=== PATIENT | male | born 1945 | race Caucasian/White ===

== ENCOUNTER 2018-08-02 06:08 | Inpatient (IN) | payer MEDICARE, OTHER, SELFPAY ==
[2018-07-29 11:00] VITALS: BMI 25.8
[2018-08-02] VITALS (14 sets, daily range): BP systolic 99–159; BP diastolic 50–93; PULSE 58–92; RESP 13–20; TEMP 35.8–36.9; O2SAT 95–100; BMI 24.9
--- NOTE | 2018-08-02 06:00 | DI.RAD.S_ITS ---
PROCEDURE: XR PELVIS 1-2V INDICATIONS: postop right total hip TECHNIQUE: 1 view of the lower pelvis acquired. COMPARISON: [facility], CR, XR PELVIS WITH LATERAL HIP RIGHT, 04/06/2018, 10:30. [facility], CR, PELVIS 1 OR 2 VIEWS, 08/04/2016, 12:44. [facility], CR, PELVIS 1 OR 2VW, 10/06/2013, 9:28. FINDINGS: Bones: Patient is status post right hip arthroplasty, with hardware components in expected positions. The hip joint appears congruent. The visualized bony structures appear intact. Soft tissues: Overlying postoperative changes are noted. No suspicious soft tissue densities. IMPRESSION: Interval right total hip arthroplasty, normal alignment. Dictated by: Ozzy Jalloh M.D. on 08/02/2018 at 9:31 Approved by: Ozzy Jalloh M.D. on 08/02/2018 at 9:31
[2018-08-02] MEDS: ACETAMINOPHEN 325 MG TABLET 975 MG PO (07:24)
[2018-08-02] MEDS: PREGABALIN 75 MG CAPSULE PO (07:25)
[2018-08-02] MEDS: MELOXICAM 7.5 MG TABLET 15 MG PO (07:25)
[2018-08-02] MEDS: LACTATED RINGERS 1,000 ML 42 ML IV ×2 (07:32→08:28)
[2018-08-02] MEDS: CEFAZOLIN 2 GM/100 ML FROZ.PIGGY IV ×2 (07:43→17:00)
--- NOTE | 2018-08-02 07:44 | PM.PREOP ---
Pre-operative Note Interval Note History & Physical reviewed/Exam performed by Physician: Yes Changes to H&P: No
--- NOTE | 2018-08-02 08:18 | SUR.OPER ---
Lateral on padded OR bed. Gel axillary roll. Arms secured on padded armboard with pillow supporting top arm. Padded hip positioner braces x4 - anterior and posterior chest and pelvis. Additional gel pad used anterior pelvis. Gel pad under bottom leg from knee to foot and secured with tape over sheet.
[2018-08-02] MEDS: BUPIVACAINE 0.25% W/ EPI VIAL 50 ML INJ (08:30)
[2018-08-02] MEDS: TRANEXAMIC ACID 1,000 MG VIAL 1000 MG IV ×2 (08:33→08:49)
--- NOTE | 2018-08-02 09:21 | PM.OP.1 ---
Operative Date/Time/Diagnoses Date of procedure: 08/02/18 Time of procedure: 09:21 Pre-op diagnosis: right hip degenerative joint disease Post-op diagnosis: same Procedure & Clinicians Procedure: right total hip arthroplasty ( CPT code 04781 with bilingual teacher assistant) Same procedure as scheduled: Yes
--- NOTE | 2018-08-02 09:24 | P.OP_ITS ---
Operative Date/Time/Diagnoses Date of procedure: 08/02/18 Time of procedure: 09:21 Pre-op diagnosis: right hip degenerative joint disease Post-op diagnosis: same Procedure & Clinicians Procedure: right total hip arthroplasty ( CPT code 90519 with malt specifications control assistant) Same procedure as scheduled: Yes
--- NOTE | 2018-08-02 09:25 | SUR.PHASEI ---
glasses, hearing aids, clothing bag, and coat with patient. Arouses easily, declined PO intake, pain, nausea. returned to sleep.
--- NOTE | 2018-08-02 09:27 | PM.OP.1 ---
Operative Date/Time/Diagnoses Date of procedure: 08/02/18 Time of procedure: 09:27 Pre-op diagnosis: Right hip degenerative joint disease Post-op diagnosis: same Procedure & Clinicians Procedure: right total hip arthroplasty ( CPT code 53956 with community assistant) Same procedure as scheduled: Yes Indications: Patient is an []-year-old [] with severe [] hip DJD. The patient has pain with activities and at rest, limited ambulation and activity tolerance, difficulties with ADLs, and failure of conservative treatment. We have discussed the nature of condition, treatment options, risks and benefits, and patient elects to proceed with total hip arthroplasty and gives informed consent. Surgeon: Lito Carlson Lift Mechanic: Adrian Brasher Anesthesia Type: General and Spinal Operative Notes Closure Type: primary Specimen(s): none sent Estimated Blood Loss (mL): 150 Blood products transfused: none
--- NOTE | 2018-08-02 09:30 | SUR.PHASEI ---
anesthesia checked on patient, movement - R>L
--- NOTE | 2018-08-02 09:34 | P.OP_ITS ---
Operative Date/Time/Diagnoses Date of procedure: 08/02/18 Time of procedure: 09:27 Pre-op diagnosis: Right hip degenerative joint disease Post-op diagnosis: same Procedure & Clinicians Procedure: right total hip arthroplasty ( CPT code 83914 with assistant chief nursing officer) Same procedure as scheduled: Yes Indications: Patient is an []-year-old [] with severe [] hip DJD. The patient has pain with activities and at rest, limited ambulation and activity tolerance, difficulties with ADLs, and failure of conservative treatment. We have discussed the nature of condition, treatment options, risks and benefits, and patient elects to proceed with total hip arthroplasty and gives informed consent. Surgeon: Lito Carlson Dentist Attendant: Adrian Brasher Anesthesia Type: General and Spinal Operative Notes Closure Type: primary Specimen(s): none sent Estimated Blood Loss (mL): 150 Blood products transfused: none
--- NOTE | 2018-08-02 10:06 | SUR.PHASEI ---
0942 late entry To room 209; bed down and locked, call light within reach. Patient putting in his hearing aids, SCDs on. clothing bag to closet. Glasses w/patient. Awake, oriented, O2 low 90s, AC Rn placing on O2. No questions/concerns.
[2018-08-02] MEDS: LACTATED RINGERS 1,000 ML 125 ML IV ×2 (11:03→18:48)
--- NOTE | 2018-08-02 11:04 | PC.NURSE ---
Admission, Arrived from PACU on RA, oriented, Spo2 92% placed on 1L. Pt denies pain or nausea. Lives on [place], accompanied by Lilian. POC reviewed. Harris path patient. I.S. provided by family. Plan for d/c is home on [address] [facility] 08/03.
--- NOTE | 2018-08-02 11:22 | PM.OP.1 ---
Operative Date/Time/Diagnoses Date of procedure: 08/02/18 Time of procedure: 08:10 Pre-op diagnosis: Right hip DJD Post-op diagnosis: same Procedure & Clinicians Procedure: Right total hip arthroplasty (CPT code 01852 with assistant branch operations manager) Same procedure as scheduled: Yes Indications: Patient is an 72-year-old male with severe right hip DJD. The patient has pain with activities and at rest, limited ambulation and activity tolerance, difficulties with ADLs, and failure of conservative treatment. We have discussed the nature of condition, treatment options, risks and benefits, and patient elects to proceed with total hip arthroplasty and gives informed consent. Surgeon: Lito Carlson Calculus Professor: Adrian Brasher Anesthesia Type: General and Spinal Operative Notes Closure Type: primary Specimen(s): none sent Prosthetic devices, grafts, tissues, transplants, or devices: Acetabulum: Dunaway and Nephew R3 acetabular component size 52 mm Femoral component: Dunaway and Nephew Anthology stem size 6 with standard offset Femoral head: 36 mm + 0 Oxinium Estimated Blood Loss (mL): 150 Blood products transfused: none Procedure in detail: After satisfaction induction of anesthetic, and administration of IV antibiotics, the patient was positioned in the lateral decubitus position with all bony prominences well padded and pelvic position secured using a hip lead generator positioning device. Right hip and lower extremity prepped and draped in the usual sterile fashion, 1st dose of intravenous tranexamic acid was administered, then a longitudinal incision was created centered over the greater trochanter and carried sharply through the skin and subcutaneous tissues down to the fascia mariposa which was divided longitudinally and retracted with a Charnley retractor. External rotators visualize, cut, tagged, and retracted posteriorly, then the capsule was cut in a T-type fashion with the corners tagged and retracted. Hip was dislocated and femoral neck cut made according to preoperative templating. Acetabular retractors then placed, and the acetabular labrum and osteophytes were excised. The acetabulum was then sequentially reamed to 51 mm with an excellent circumferential ream and fit with the trial. The trial component was removed and a permanent size 52 mm Dunaway and Nephew R3 acetabular component was selected, positioned, and impacted with satisfactory position and fixation achieved. Permanent liner was then inserted with the elevated lip directed posteriorly. Soft tissue then removed off the lateral femoral neck in the lateral neck was entered using a box osteotome. T-handled reamers placed down the canal followed by sequential broaching to 6 with the final broach left in place for trial reduction which demonstrated excellent leg length, range of motion, and stability characteristics with a 36 mm +0 trial ball. The trial and broach were removed, and a permanent size 6 Dunaway and Nephew Anthology stem was selected and inserted with excellent position and fixation achieved. Another trial reduction yielded the above characteristics so the trial ball was exchanged for a permanent 36 mm +0 Oxinium ball. The hip was irrigated and reduced and excellent leg length range of motion and stability characteristics were achieved and maintained. Periarticular tissues were infiltrated with Marcaine. The hip was copiously irrigated, and the capsule repaired with #2 Ethibond, and the piriformis was repaired back to the greater trochanter with the same. Fascia mariposa closed with interrupted #1 Ethibond sutures, and the subcutaneous tissues were closed in 2 layers of 0 Vicryl and 2 0 Vicryl. Skin was closed with fernando and sterile dressings applied. Second dose of tranexamic acid was administered intravenously, and the anesthetic was terminated. Complications: none Condition: stable Disposition: PACU Plan for aftercare: Patient will be admitted to the acute care [facility], and anticipate discharge on postop day 1-2 with follow-up in office in 10-14 days. Outpatient physical therapy will be arranged and patient will continue to observe posterior hip precautions. Patient will continue use of postoperative Lovenox for 10 days postop.
--- NOTE | 2018-08-02 11:26 | P.OP_ITS ---
Operative Date/Time/Diagnoses Date of procedure: 08/02/18 Time of procedure: 08:10 Pre-op diagnosis: Right hip DJD Post-op diagnosis: same Procedure & Clinicians Procedure: Right total hip arthroplasty (CPT code 60565 with project construction assistant manager) Same procedure as scheduled: Yes Indications: Patient is an 72-year-old male with severe right hip DJD. The patient has pain with activities and at rest, limited ambulation and activity tolerance, difficulties with ADLs, and failure of conservative treatment. We have discussed the nature of condition, treatment options, risks and benefits, and patient elects to proceed with total hip arthroplasty and gives informed consent. Surgeon: Lito Carlson Epic Stork Specialists: Adrian Brasher Anesthesia Type: General and Spinal Operative Notes Closure Type: primary Specimen(s): none sent Prosthetic devices, grafts, tissues, transplants, or devices: Acetabulum: Dunaway and Nephew R3 acetabular component size 52 mm Femoral component: Dunaway and Nephew Anthology stem size 6 with standard offset Femoral head: 36 mm + 0 Oxinium Estimated Blood Loss (mL): 150 Blood products transfused: none Procedure in detail: After satisfaction induction of anesthetic, and administration of IV antibiotics, the patient was positioned in the lateral decubitus position with all bony prominences well padded and pelvic position secured using a hip industrial psychology professor positioning device. Right hip and lower extremity prepped and draped in the usual sterile fashion, 1st dose of intravenous tranexamic acid was administered, then a longitudinal incision was created centered over the greater trochanter and carried sharply through the skin and subcutaneous tissues down to the fascia mariposa which was divided longitudinally and retracted with a Charnley retractor. External rotators visualize, cut, tagged, and retracted posteriorly, then the capsule was cut in a T-type fashion with the corners tagged and retracted. Hip was dislocated and femoral neck cut made according to preoperative templating. Acetabular retractors then placed, and the acetabular labrum and osteophytes were excised. The acetabulum was then sequentially reamed to 51 mm with an excellent circumferential ream and fit with the trial. The trial component was removed and a permanent size 52 mm Dunaway and Nephew R3 acetabular component was selected, positioned, and impacted with satisfactory position and fixation achieved. Permanent liner was then inserted with the elevated lip directed posteriorly. Soft tissue then removed off the lateral femoral neck in the lateral neck was entered using a box osteotome. T- handled reamers placed down the canal followed by sequential broaching to 6 with the final broach left in place for trial reduction which demonstrated excellent leg length, range of motion, and stability characteristics with a 36 mm +0 trial ball. The trial and broach were removed, and a permanent size 6 Dunaway and Nephew Anthology stem was selected and inserted with excellent position and fixation achieved. Another trial reduction yielded the above characteristics so the trial ball was exchanged for a permanent 36 mm +0 Oxinium ball. The hip was irrigated and reduced and excellent leg length range of motion and stability characteristics were achieved and maintained. Periarticular tissues were infiltrated with Marcaine. The hip was copiously irrigated, and the capsule repaired with #2 Ethibond, and the piriformis was repaired back to the greater trochanter with the same. Fascia mariposa closed with interrupted #1 Ethibond sutures, and the subcutaneous tissues were closed in 2 layers of 0 Vicryl and 2 0 Vicryl. Skin was closed with fernando and sterile dressings applied. Second dose of tranexamic acid was administered intravenously, and the anesthetic was terminated. Complications: none Condition: stable Disposition: PACU Plan for aftercare: Patient will be admitted to the acute care [facility], and anticipate discharge on postop day 1-2 with follow-up in office in 10-14 days. Outpatient physical therapy will be arranged and patient will continue to observe posterior hip precautions. Patient will continue use of postoperative Lovenox for 10 days postop.
--- NOTE | 2018-08-02 15:42 | PT.IIE ---
Current Diagnoses Unilateral primary osteoarthritis, right hip (08/02/18) Surgery Performed Operation Date: 08/02/18 07:45 Actual Procedures p Total Hip Arthroplasty(Right) - Lito Carlson MD Surgical History (Last Updated 07/29/18 @ 11:25 by Carissa Quiroz RN) History of total left hip arthroplasty (Acute 08/04/16) Hx of lithotripsy (Acute) S/P small bowel resection (Acute) Status post bilateral cataract extraction (Acute) Medical History (Last Updated 07/29/18 @ 11:25 by Carissa Quiroz RN) Arthritis (Acute) Velázquez's esophagus (Acute) Constipation (Acute) Dislocation of right shoulder joint (Acute) GERD (gastroesophageal reflux disease) (Acute) Glaucoma (Acute) Hearing loss (Acute) Osteoarthritis (Acute) Physical Therapy Inpatient Evaluation/Re-Eval M1 PT/OT-IP Prior Functional Status Start: 08/02/18 14:59 Freq: NEEDED Status: Active Protocol: Document 08/02/18 13:30 (Rec: 08/02/18 15:18 [email or web address]) Medical Review Prior Functional Status Medical History Reviewed Yes Diet/Fluid Consistency Regular Communication No deficits noted Mobility and Gait Pt was an independent ambulator at home and community without using AD. Pt was able to ski during this winter season. Pt did c/o he has chronic R hip pain from DJD. Activities of Daily Living and IADL's Pt was very independent for ADLs/ IADLs without using AD. Social History Household Members spouse Living Arrangements House Number of Floors (Floors) 3 or More Floors Number of Stairs To Enter/Railing? 2 stairs, no railing. 2 wide TERESO without railing Home Environment Standard Height Toilet Walk in Shower Home Equipment Front Wheel Walker Raised Toilet Seat w/Armrests Grab Bars In Shower Employment Status Retired Additional Social History Comment Pt lives with his in a 3story home in [place]. They both stay in main floor primarily. Pt has 2 wide step to get into the house without railing. Pt had L GIOVANNA 2 years ago and it was very successful , who was able to return to ski during the past 2 years. Pt reports he had chronic R hip pain due to DJD which made climbing ladder and negotiating stairs harder due to pain. Pt scheduled outpatient PT with [facility] starting from next week. M2 PT-IP Current Condition Start: 08/02/18 14:59 Freq: NEEDED Status: Active Protocol: Document 08/02/18 13:30 HH (Rec: 08/02/18 15:18 [email or web address]) Physical Therapy Current Condition Current Condition Evaluation Date 08/02/18 Treatment Diagnosis R GIOVANNA, impaired walking and activity tolerance Onset Date 08/02/18 Precautions Posterior Hip Precautions No Hip Flexion > 90 degrees No Hip Internal Rotation No Hip Adduction Weight Bearing Status Weight Bearing Status Weight Bear as Tolerated M3 PT-IP Subjective Start: 08/02/18 14:59 Freq: NEEDED Status: Active Protocol: Document 08/02/18 13:30 HH (Rec: 08/02/18 15:18 [email or web address]) Subjective Physical Therapy Visit Type Type Initial Evaluation Visit Start Time 13:30 Visit Stop Time 14:00 Total Visit Minutes 30 Notes Pt's at bedside. Number of STEWARD/STEWARDESS BATH Visits 0 Physical Therapy Visit Comments Patient Comments Pt agreeable to mobilize with PT. Patient Goals To return home with his and participate outpatient PT in [facility] Pain Assessment Pain Present Pain Present Denied Pain M4 PT-IP Mobility and Gait Start: 08/02/18 14:59 Freq: NEEDED Status: Active Protocol: Document 08/02/18 13:30 HH (Rec: 08/02/18 15:18 [email or web address]) PT-Bed Mobility Assessment Supine to Sit Supine to Sit Standby Assistance Bedrails Scooting Scooting to Edge of Bed Standby Assistance PT-Transfer Assessment Sit to and From Stand Sit to and from Stand Standby Assistance Use of Upper Extremities Equipment Transfer Assistive Device Gait Belt Front Wheeled Walker Transfers Transfer Destination Bed Chair Toilet Transfer Technique Stand Step Pivot Transfer Ability Level of Assist Standby Assistance Use of Upper Extremities Comments Mobility Comments Pt was in bed upon assessment. Pt was able to pivot his R LE and sat up at EOB on his L side with SBA. Pt used stagger stance for sit <>stand activities safely and he was also able to stand unsupported for toileting. Gait Assessment Gait Gait Assistance Required: Standby Assistance Distance (Feet) 100 Able to Maintain Weight Bearing Status Yes During Gait Assistive Devices Assistive Device Gait Belt Front Wheeled Walker Gait Deviations General Gait Pattern Antalgic Decreased Stride Length Decreased Feet Clearance Factors Limiting Gait Function Factors Limiting Gait Function Decreased Activity Tolerance Decreased Strength Limited Range of Motion Pain Comments Gait Comments Pt stood up from bed and amb to hallway with FWW SBA. Pt was able to amb with slight antalgic gait and slight decreased R stride length, but he did not have LOB/ acute distress. Pt was very steady the whole time. Pt denies discomfort and pain but slight soreness at R hip. Stair Climbing Assessment Evaluation Level of Assist On Stairs Standby Assistance Devices Stair Climbing Assistive Devices Left Railing Right Railing Technique/Endurance Stair Climbing Direction Ascend and Descend Stair Climbing Technique Step to Step Number of Steps Climbed 3 Query Text: Stair Climbing Set # Repetitions (reps) 3 Comments Stair Climbing Comments Pt was able to lead with L during ascend, and R during descend. PT-Balance Assessment Sitting Balance and Reactions Static Sitting Balance Ability Normal Dynamic Sitting Balance Ability Normal Standing Balance and Reactions Static Standing Balance Ability Normal Dynamic Standing Balance Ability Good Device Used none M5 PT-IP Objective Assessments Start: 08/02/18 14:59 Freq: NEEDED Status: Active Protocol: Document 08/02/18 13:30 HH (Rec: 08/02/18 15:18 [email or web address]) Orientation Orientation/Cognition Level of Alertness Alert Orientation Name Age Birthday Month Date Year Day of Week Place Situation Language Function Ability No Deficits Noted Safety Awareness Understands Safety Issues Memory Description No Deficits Noted Gross Range of Motion Upper Extremity ROM Assessment Within Functional Limits Lower Extremity ROM Assessment Right Impaired Strength Upper Extremity Strength Assessment Within Functional Limits Lower Extremity Strength Assessment Right Impaired Comments Strength Comments 4-/5 R LE gross strength Coordination Assessment Gross Coordination Gross Coordination WNL Sensation Assessment Sensation Gross Sensation Right LE Impaired Light Touch Impaired Proprioception (Position) Impaired Sensation Description Numbness Comments Sensation Comments c/o slight numbness at R upper thigh Muscle Tone Muscle Tone WNL Yes M6 PT-IP Treatment Start: 08/02/18 14:59 Freq: NEEDED Status: Active Protocol: Document 08/02/18 13:30 HH (Rec: 08/02/18 15:18 [email or web address]) Physical Therapy Treatment Exercises Exercises Ankle Pumps Gluteal Sets Quad Sets Heel Slides Straight Leg Raises Education Education Provided Precautions Weight Bearing Status Post-Op Packet Safety M7 PT-IP Assessment and Plan Start: 08/02/18 14:59 Freq: NEEDED Status: Active Protocol: Document 08/02/18 13:30 HH (Rec: 08/02/18 15:18 [email or web address]) PT Summary Assessment and Plan Potential Rehabilitation Potential Excellent Status of Condition at Evaluation Stable Summary Impairments Pain ROM Sensation Transfers Gait Activity Tolerance Assessment Summary Pt is a very pleasant and motivated 72yo male POD #1 R GIOVANNA due to chronic DJD. Upon assessment, pt was able to amb 100 ft FWW SBA in total without rest. He was able to climb stairs 12 steps in total with proper step to technique . He was standing unsupported >1min for toileting as well. Pt denies pain and discomfort and seamus tx session very well. Pt's home is safety proof with sufficient DME who will also have his 's assistance as needed at home. Pt will be safe to d/c home with 's assistance and otupatient PT to cont improve mobility. Goals Bed Mobility Goal Independent Transfer Goal Independent Front Wheeled Walker Gait Goal Independent Front Wheel Walker Gait Distance 300 Other Goals stair climb 18 steps with rails Days to Meet Goals 3 Frequency of Treatment Frequency Of Treatment Twice a Day Treatment Plan Physical Therapy Treatment Plan Bed Mobility Training Transfer Training Gait Training Therapeutic Exercise Balance Retraining Post Op Education Discharge Planning Hot or Cold Pack Other Recommendations and Next Treatment gait stair training as seamus Focus Recommendations To Nursing Amount of Assist Needed Standby Assistance 1 Person Assist Discharge Recommendations PT Discharge Recommendations Home with Assistance Outpatient PT
[2018-08-02] MEDS: HYDROCODONE/ACET 5/325 TABLET 1 TAB PO (19:34)
[2018-08-02] MEDS: hydrOXYzine pamoate 25 MG CAPSULE PO (20:26)
[2018-08-02] MEDS: OXYCODONE IR 10 MG TABLET PO (21:14)
[2018-08-02] MEDS: PANTOPRAZOLE 20 MG TABLET PO (21:16)
[2018-08-03] VITALS: BP 116/81; PULSE 83; RESP 16; TEMP 37.6; O2SAT 96
[2018-08-03] MEDS: CEFAZOLIN 2 GM/100 ML FROZ.PIGGY IV (00:54)
--- NOTE | 2018-08-03 01:22 | PC.NURSE ---
2300- POD#0; dressing on R hip CDI. SED's in place; pt tolerating regular diet. No needs at this time. NS running per orders into patent periph IV. 0150- Abx hung per ordered; pillow support in place; pt well aware posterior precautions. 0600- IV fluids stopped as ordered. VSS are stable, pt taking PO well, good urine output.
[2018-08-03 03:58] VITALS: BP 117/74; PULSE 73; RESP 16; TEMP 36.9; O2SAT 97
[2018-08-03 06:12] LABS: Hemoglobin 13.7 g/dL (13.5-17.5)
[2018-08-03 08:28] VITALS: BP 141/85; PULSE 80; RESP 16; TEMP 36.8; O2SAT 97
[2018-08-03] MEDS: PANTOPRAZOLE 20 MG TABLET PO (08:50)
[2018-08-03] MEDS: CHOLECALCIFEROL (VITAMIN D3) 1,000 UNIT TABLET 1000 UNIT PO (08:50)
[2018-08-03] MEDS: ENOXAPARIN 40 MG/0.4 ML SYRINGE SUBCUT (08:51)
[2018-08-03] MEDS: OXYCODONE IR 10 MG TABLET PO ×2 (08:51→13:38)
--- NOTE | 2018-08-03 08:56 | P.DS_ITS ---
History of Present Illness Date Patient Seen: 08/03/18 Time Patient Seen: 08:54 Chief complaint: right hip [id number] Narrative: Hospital day 2, postop day 1 following right posterior total hip ar throplasty by Dr. Carlson. Patient remained stable overnight. He has been up with physical therapy and they felt he was stable for home. He is scheduled to go to [facility]. Pain controlled well with oxycodone. Discharge Providers Date of admission: 08/02/18 06:08 Discharge Date: 08/03/18 Primary care physician: Carmelo Flanagan MD Consults: 08/02/18 10:01 Consult to Discharge Planning Routine Comment: Consult to Physical Therapy Evaluate & Treat Comment: Physician Instructions: post op GIOVANNA protocol Consult to Respiratory Therapy Evaluate & Treat Comment: Physician Instructions: Evaluate and treat Discharge provider: Carlos Sharp PA-C Summary Discharge Diagnosis: Status post a right posterior total hip arthroplasty Hospital Course: Patient brought to hospital on 08/02/2018 for above-noted surgery. He remained stable postoperatively. Did well with physical therapy. Ready for discharge home on postop day 1. Status at Discharge Cognitive/behavioral status at discharge: Alert, oriented no acute distress. Functional status at discharge: uses cane/walker Overall status at discharge: patient is progressing back to baseline Time Spent with Patient Less than 30 minutes Exam Vital Signs (past 8 hours): - 08/03/18 03:58 08/03/18 08:28 Temperature 98.5 F 98.3 F Pulse Rate 73 80 Respiratory Rate 16 16 Blood Pressure 117/74 141/85 H Pulse Oximetry 97 97 Oxygen Delivery Method Nasal Cannula Oxygen Flow Rate 0 Narrative Exam Narrative: Legs. Bulky dressing to right hip incision area is dry without drainage or inflammation. No calf pain or swelling. Pulses symmetrical. Objective Labs Result Diagrams: 08/03/18 05:53 Labs: Laboratory Results - last 24 hr 08/03/18 05:53 Hgb 13.7 Hct 40.0 L Discharge Plan Discharge Plan Patient Disposition: Home Discharge comment: Discharge home after cleared by PT today. Patient is a [facility] patient and has postoperative pain meds at home. Given prescription for Lovenox to complete a 10 day course. He is scheduled to go to [facility]. Discharge Med Rec/Prescriptions Prescriptions: New enoxaparin [Lovenox] 40 mg/0.4 mL Syringe 40 mg subcut DAILY Qty: 9 RF: 0 Continued Metamucil Fiber Singles 3.4 GM powder in packet 1 pkt PO QDAYP PRN (Reason: Constipation) Qty: 0 RF: 0 Travoprost (TRAVATAN OPHTH 0.004%) 1 drp EYE-BOTH HS Qty: 0 RF: 0 VITAMIN D (Vitamin D3) 1,000 unit PO QDAY Qty: 0 RF: 0 vitamin E 400 UNIT capsule 400 u PO QDAY Qty: 0 RF: 0 famotidine 20 mg Tablet 20 mg PO BEDTIME RF: 0 omeprazole 20 mg Capsule,Delayed Release(Dr/Ec) 20 mg PO BID RF: 0 Follow up/Referrals: Carmelo Flanagan MD [Primary Care Provider] - Provider Discharge Instructions Diet: Diet as Tolerated Activity: Ambulate as tolerated. Use walker as needed. Use posterior hip precautions x6 weeks postop. Cold/Heat Therapy: Cold pack to hip as needed. Other treatments: Use Lovenox daily until gone. Skin/Wound/Dressing Care Report to your healthcare provider any signs of infection, such as:: chills, fever, night sweats, increased pain, unusual drainage and unusual redness Dressing: CovRsite dressing to right hip to stay on until postop visit. Visit Report/Discharge Packet Instructions: DI for Hip Replacement Discharge Data Primary Care Provider: Carmelo Flanagan Attending Provider: Lito Carlson Admit Date/Time: 08/02/18 06:08 Quality VTE Deep Vein Thrombosis/Pulmonary Embolism Present on Admission: No
[2018-08-03] MEDS: VITAMIN E 400 UNIT CAPSULE PO (10:04)
--- NOTE | 2018-08-03 10:48 | CM.DANOTE ---
DCP/Assessment: Reviewed chart. Patient is a 72yr old male admitted to [facility] for right GIOVANNA performed on 08-02-18. PCP listed is Dr. Flanagan. Primary payor is 1)Medicare 2)Commercial Insurance. Met with patient explained CM/SW role. Patient alert and oriented at time of visit. Patient anticipates that he will go home today. Patient resides on [address] with spouse and plans to take return sailing at approximately 3:00pm. Priority boarding will be provided. Patient plans to go outpatient for therapy on [address]. Patient primarily I with all ADL's. No anticipated needs identified. P: Home today. XIN Scales Discharge Planning/Care Management Advanced directive, confirm from FAMILY Start: 08/02/18 12:40 Freq: Q24H Status: Active Protocol: Document 08/02/18 12:40 NC (Rec: 08/02/18 14:55 NC [id number]) Advance Directive, confirm on record Time 14:00 Person contacted Lilian (Spouse) Copy received No CM Discharge Assessment Start: 08/03/18 10:45 Freq: Status: Active Protocol: Document 08/03/18 10:45 KJS (Rec: 08/03/18 10:48 KJS [id number]) Discharge Planning Assessment Assigned Client Technologies Analyst XIN Scales Contact Information Lilian العراقي (spouse) [phone] Advance Directives? Yes Advance Directives on File Yes History Provided By Patient Significant Other Has Patient been admitted in last 30 No days? Prior Living Arrangements House Household Members spouse Type of transporation used prior to Drives own vehicle admit Independent with ADL's Yes Is patient alert and oriented? Yes Caregiver for Another No DME Already Rented / Owned FWW / Walker Patient/Family Preference OP PT Therapy Barriers to Discharge No Discharge Plan Home Transportation Arrangement Family to provide transport Referrals Initiated None needed Whiteboard Updated in Patient Room with Yes name and ext. 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 Cargo Utility Trailers Required No Height 167.64 cm Weight 72.575 kg Body Mass Index (BMI) 25.8 Hearing Ability Hard of Hearing Use of Hearing Aid Visual Assist Glasses Barriers to Learning Auditory Other Aids No Hx Anesthesia Reactions No Hx Family Anesthesia Reaction No Hx Malignant Hyperthermia No Hx Blood Transfusions Yes: r/t [place] Hx Blood Transfusion Reaction No Anesthesia Review Requested No 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 No Does patient have EWING/SOB No Hx Sleep Apnea No Currently Taking a Beta James No Can You Climb a Flight of Stairs Without Yes SOB Hx Chest Pain No Hx SOB No Hx Syncope or Dizziness No Anti-Coagulant Therapy No Has a Csr No Cardiac Testing No Hx Pacemaker/ICD No Pacemaker Rep Required? No Cardiac Clearance Received Not Applicable Diet Type At Home Regular dysphagia No: Hx Velázquez's esophagus Urinary Catheter Present No Hx Urinary Self Catheterization No Diabetes No Hx Drug Resistant Organism No Presence of External or Internal Medical No Devices Have you traveled outside the [facility] States in the last 30 days? Marital Status Lives With spouse Prior Living Arrangements House Number of Floors (Floors) 3 or More Floors Number of Stairs To Enter/Railing? 2 stairs, no railing Support System Friend(s) Spouse Does the Patient Have Assistance After Yes: Lives on [place] [facility] Patient Discharge Plan Description Return Home Comment Pt advised overnight - 1 day length of stay per surgeon's office Feels Safe in Current Environment Yes Been Physically Hurt or Threatened By a No Person in Current Environment Do you have thoughts of harming yourself None or others? Are you currently considering suicide? No Do you have a plan to hurt yourself or No Plan others? Do You Have Any Spiritual Beliefs That No May Affect Your HC Choices? Do You Have Any Cultural Practices That No May Affect Your HC Choices? Spiritual Referral None Who Can We Speak to About Patient's Care Family, friends Identifying Code for Release of Patient Declines to issue Information Health Care Proxy/Next of Kin Lilian () Health Care Proxy Emergency Contact Name Lilian () Emergency Contact Advance Directives? Yes Advance Directives on File Yes Power of Travel Sales Consultant Yes Power of Travel Sales Consultant Name Wilberto [place] PAC Instructions Durable medical equipment Medications to take/avoid Nasal antibiotic No ETOH/petroleum product on skin DOS NPO Post-op transportation Pre-surgical wash Sturdy shoes/comfortable clothes Do not bring valuables and remove jewelry
--- NOTE | 2018-08-03 10:52 | PC.NURSE ---
Pt instructed on technique to give self injection of Lovenox. Pt stated spouse would be giving his injection daily but he was willing to learn.
--- NOTE | 2018-08-03 12:24 | PT.IPTN ---
Current Diagnoses Unilateral primary osteoarthritis, right hip (08/02/18) Surgery Performed Operation Date: 08/02/18 07:45 Actual Procedures p Total Hip Arthroplasty(Right) - Lito Carlson MD Physical Therapy Treatment Note M2 PT-IP Current Condition Start: 08/02/18 14:59 Freq: NEEDED Status: Active Protocol: Document 08/02/18 13:30 HH (Rec: 08/02/18 15:18 HH [id number]) Physical Therapy Current Condition Current Condition Evaluation Date 08/02/18 Treatment Diagnosis R GIOVANNA, impaired walking and activity tolerance Onset Date 08/02/18 Precautions Posterior Hip Precautions No Hip Flexion > 90 degrees No Hip Internal Rotation No Hip Adduction Weight Bearing Status Weight Bearing Status Weight Bear as Tolerated M3 PT-IP Subjective Start: 08/02/18 14:59 Freq: NEEDED Status: Active Protocol: Document 08/03/18 11:36 CLB (Rec: 08/03/18 12:24 CLB [id number]) Subjective Physical Therapy Visit Type Type Treatment Note Visit Start Time 11:36 Visit Stop Time 11:59 Total Visit Minutes 23 Number of DIAGNOSTIC SALES SPECIALIST Visits 1 Physical Therapy Visit Comments Patient Comments Pt agreeable to mobilize with PT. Therapy Pain Assessment Pain When Pain Assessed During Mobility Pain Present Pain Present Pain Reported Location Right Hip Intensity 2 Scale Used Numeric (1 - 10) M4 PT-IP Mobility and Gait Start: 08/02/18 14:59 Freq: NEEDED Status: Active Protocol: Document 08/03/18 11:36 CLB (Rec: 08/03/18 12:24 CLB [id number]) PT-Bed Mobility Assessment Supine to Sit Supine to Sit Standby Assistance Scooting Scooting to Edge of Bed Standby Assistance PT-Transfer Assessment Sit to and From Stand Sit to and from Stand Standby Assistance Use of Upper Extremities Equipment Transfer Assistive Device Gait Belt Front Wheeled Walker Transfers Transfer Destination Bed Chair Transfer Technique Stand Step Pivot Comments Mobility Comments Pt is SBA for all bed mobility and uses knowledge of precations well. Gait Assessment Gait Gait Assistance Required: Standby Assistance Distance (Feet) 250 Able to Maintain Weight Bearing Status Yes During Gait Assistive Devices Assistive Device Gait Belt Front Wheeled Walker Gait Deviations General Gait Pattern Antalgic Decreased Stride Length Decreased Feet Clearance Factors Limiting Gait Function Factors Limiting Gait Function Decreased Activity Tolerance Decreased Strength Limited Range of Motion Pain Comments Gait Comments Pt ambulated in otero ~250ft with small step through gait pattern with slight antalgic gait on right side. Stair Climbing Assessment Evaluation Level of Assist On Stairs Standby Assistance Devices Stair Climbing Assistive Devices Front Wheel Walker Technique/Endurance Stair Climbing Direction Ascend and Descend Stair Climbing Technique Step to Step Number of Steps Climbed 1 Query Text: Stair Climbing Set # Repetitions (reps) 2 Comments Stair Climbing Comments Pt has two platform steps to enter home. Pt was able to perform stair climbing on platform step with FWW/SBA. M5 PT-IP Objective Assessments Start: 08/02/18 14:59 Freq: NEEDED Status: Active Protocol: Document 08/02/18 13:30 HH (Rec: 08/02/18 15:18 HH [id number]) Orientation Orientation/Cognition Level of Alertness Alert Orientation Name Age Birthday Month Date Year Day of Week Place Situation Language Function Ability No Deficits Noted Safety Awareness Understands Safety Issues Memory Description No Deficits Noted Gross Range of Motion Upper Extremity ROM Assessment Within Functional Limits Lower Extremity ROM Assessment Right Impaired Strength Upper Extremity Strength Assessment Within Functional Limits Lower Extremity Strength Assessment Right Impaired Comments Strength Comments 4-/5 R LE gross strength Coordination Assessment Gross Coordination Gross Coordination WNL Sensation Assessment Sensation Gross Sensation Right LE Impaired Light Touch Impaired Proprioception (Position) Impaired Sensation Description Numbness Comments Sensation Comments c/o slight numbness at R upper thigh Muscle Tone Muscle Tone WNL Yes M6 PT-IP Treatment Start: 08/02/18 14:59 Freq: NEEDED Status: Active Protocol: Document 08/03/18 11:36 CLB (Rec: 08/03/18 12:24 CLB [id number]) Physical Therapy Treatment Exercises Exercises Ankle Pumps Gluteal Sets Quad Sets Heel Slides Supine Hip Abduction Education Education Provided Precautions Weight Bearing Status Post-Op Packet Safety M7 PT-IP Assessment and Plan Start: 08/02/18 14:59 Freq: NEEDED Status: Active Protocol: Document 08/03/18 11:36 CLB (Rec: 08/03/18 12:24 CLB [id number]) PT Summary Assessment and Plan Summary Assessment Summary Pt is SBA for all bed mobility and transfers. Pt performed stair training on platform step with FWW/SBA. Pt increased gait distance to ~ 250ft with steady gait and good safety awareness. Pt seems able to d/c home with assist of when medically stable. Goals Transfer Goal Independent Front Wheeled Walker Gait Distance 300 Other Goals stair climb 18 steps with rails Days to Meet Goals 3 Frequency of Treatment Frequency Of Treatment Twice a Day Treatment Plan Physical Therapy Treatment Plan Bed Mobility Training Transfer Training Gait Training Therapeutic Exercise Balance Retraining Post Op Education Discharge Planning Hot or Cold Pack Other Recommendations and Next Treatment gait stair training as seamus Focus Recommendations To Nursing Amount of Assist Needed Standby Assistance 1 Person Assist Discharge Recommendations PT Discharge Recommendations Home with Assistance Outpatient PT
[2018-08-03 12:51] VITALS: BP 136/83; PULSE 76; RESP 16; TEMP 37.7; O2SAT 97
--- NOTE | 2018-08-03 13:55 | PC.NURSE ---
Pt dressed and ready for discharge home with Spouse. Pain meds given, IV removed, dressing changed to Coversite. Ice pack and water provided for ferry ride home as well as a ferry pass. Went over d/c instructions with Pt and Spouse, discussed d/c meds, time of last dose, reviewed Lovenox injection technique, encourage fluid intake to prevent constipation or dehydration. Pt denies further questions and is ready for discharge home with spouse.
== END 2018-08-03 14:08 | disposition home or self-care (01) | DRG 470 ==
PROVIDERS: Admitting Provider Orthopaedic Surgery; PCP Family Medicine; Visit Provider Orthopaedic Surgery
PROC: 0SR90JZ Replacement of Right Hip Joint with Synthetic Substitute, Open Approach (ICD-10-PCS; CPT 27130; principal; 2018-08-02 07:45)
DX: M16.11 Unilateral primary osteoarthritis, right hip (principal); Z96.642 Presence of left artificial hip joint; K21.9 Gastro-esophageal reflux disease without esophagitis; Z87.891 Personal history of nicotine dependence
CPT/HCPCS: 36415; 72170; 85014; 85018; 94760; 94762; 97110; 97116; 97161; 97530; C1776; J0690; J1650; J2250; J2704; J3010